=== PATIENT | female | born 1940 | race Caucasian/White ===

== ENCOUNTER 2019-10-16 16:41 | Emergency (ER) | payer MEDICARE, OTHER ==
[~2019-10-16] VITALS: Ht 157.5 cm; Wt 66.2 kg
[2019-10-16 16:46] VITALS: BP 183/59; Ht 157.5 cm; Wt 66.2 kg
== END 2019-10-16 18:06 | disposition home or self-care (01) ==
LOC: ED 16:41
DX: S83.92XA Sprain of unspecified site of left knee, initial encounter (principal); L97.429 Non-pressure chronic ulcer of left heel and midfoot with unspecified severity; L97.419 Non-pressure chronic ulcer of right heel and midfoot with unspecified severity; E11.621 Type 2 diabetes mellitus with foot ulcer; I10 Essential (primary) hypertension; F03.90 Unspecified dementia, unspecified severity, without behavioral disturbance, psychotic disturbance, mood disturbance, and anxiety; W18.39XA Other fall on same level, initial encounter; Y93.89 Activity, other specified; Y92.89 Other specified places as the place of occurrence of the external cause; Y99.8 Other external cause status
CPT/HCPCS: Q0092

== ENCOUNTER 2019-11-04 18:04 | Inpatient (IN) | payer OTHER, MEDICARE ==
[~2019-11-04] VITALS: Ht 152.4 cm; Wt 45.4 kg
[2019-11-04 18:22] VITALS: Ht 152.4 cm; Wt 45.4 kg
--- NOTE | 2019-11-04 18:46 | NUR ---
MSE BY DR WESTFALL.
--- NOTE | 2019-11-04 18:53 | NUR ---
PT UNDRESSED WITH TOTAL ASSIST, PT GRABS WHEN ASSISTED TO TURN EITHER SIDE
[2019-11-04 19:09] LABS: BASOPHIL % 0.1 % (0-2); PLATELET COUNT 346 x10^3mcL (130-400); RED CELL DISTRIBUTION WIDTH 14.1 % (11.5-14.5)
[2019-11-04 19:24] LABS: CALCIUM 8.6 mg/dL (8.5-10.1); CARBON DIOXIDE 28.7 mmol/L (21-32); CHLORIDE SERUM 99 mmol/L (98-107); CREATININE SERUM 0.8 mg/dL (0.6-1.0); GLUCOSE SERUM 211 mg/dL (74-106); POTASSIUM SERUM 4.2 mmol/L (3.5-5.1); SODIUM SERUM 136 mmol/L (136-145)
[2019-11-04 19:33] LABS: ALKALINE PHOSPHATASE 64 U/L (46-116); ALT/SGPT 23 U/L (14-59); AST/SGOT 13 U/L (15-37); BILIRUBIN TOTAL 0.2 mg/dL (0.20-1.00); MAGNESIUM 1.8 mg/dL (1.8-2.4); TOTAL PROTEIN, SERUM 7.8 g/dL (6.4-8.2)
[2019-11-04 19:34] LABS: ALBUMIN 2.9 g/dL (3.4-5.0)
--- NOTE | 2019-11-04 19:42 | NUR ---
PT WITH FAMILY AT THE BEDSIDE. FAMILY STATED PT IS NOT IN PAIN AT THIS TIME AND IS REFUSING TORDOL AT THIS TIME. PT RESTING WELL WITH NO FACIAL GRIMACE OR S/S OF PAIN AT THIS TIME WILL CONTINUE TO MONITOR PT
--- NOTE | 2019-11-04 21:44 | NUR ---
SPOKE WITH PT FAMILY REGARDING ADMISSION. EXPLAINED DX AND ADMISSION TO PT DAUGHTER. PT REMAIN TO HAVE ELEVATED B/P MD AWARE PT MEDICATED WILL CONTINUE TO MONITOR
[2019-11-05] VITALS (8 sets, daily range): BP systolic 144–184; BP diastolic 47–77
--- NOTE | 2019-11-05 00:10 | NUR ---
PT TAKEN TO CT SCAN OF HIP PER ORDER
--- NOTE | 2019-11-05 00:42 | NUR ---
REPORT GIVEN TO EMMANUEL PAGE PT TAKEN TO FLOOR IN STABLE CONDITON NO CHANGE AT THIS TIME
[2019-11-05 00:48] LABS: CHOLESTEROL/HDL RATIO 3.8
[2019-11-05] MEDS ORDERED: GLUCOPHAGE500 MG PO (00:50)
[2019-11-05] MEDS ORDERED: KAPVAY0.1 MG PO (00:51)
[2019-11-05 02:02] LABS: FREE T4 1.13 ng/dL (0.76-1.46); FREE THYROXINE INDEX 3.5 ug/dL (1.4-4.5); T4(THYROXINE) 9.7 ug/dL (4.7-13.3)
[2019-11-05 02:48] LABS: T3 TOTAL 0.98 ng/mL
--- NOTE | 2019-11-05 06:10 | NUR ---
MAGALLANES CATHETER INSERTED, 300 CC OUT.
[2019-11-05 06:31] LABS: BASOPHIL % 0.5 % (0-2); PLATELET COUNT 325 x10^3mcL (130-400); RED CELL DISTRIBUTION WIDTH 14.1 % (11.5-14.5)
[2019-11-05 06:39] LABS: CALCIUM 8.3 mg/dL (8.5-10.1); CARBON DIOXIDE 28.8 mmol/L (21-32); CHLORIDE SERUM 102 mmol/L (98-107); GLUCOSE SERUM 166 mg/dL (74-106); POTASSIUM SERUM 4.1 mmol/L (3.5-5.1); SODIUM SERUM 137 mmol/L (136-145)
--- NOTE | 2019-11-05 06:51 | NUR ---
COMFORT AND SAFETY MEASURES MAINTAINED. WILL CONTINUE TO MONITOR AND ENDORSE CARE TO DAY SHIFT NURSE.
--- NOTE | 2019-11-05 07:30 | NUR ---
RECEIVED PATIENT. IN BED SLEEPING, EASILY AROUSABLE. NO ACUTE RESP DISTRESS NOTED. NO COMPLAINTS OF PAIN AT THIS TIME. IV INTACT AND PATENT. NO ERYTHEMA/SWELLING NOTED. SAFETY PRECAUTION IN PLACE. CALL LIGHT WITHIN REACH. WILL CONTINUE TO MONITOR.
--- NOTE | 2019-11-05 07:47 | NUR ---
Cancellation requested for Echocardiogram.
--- NOTE | 2019-11-05 09:14 | NUR ---
PAGER SENT TO DR. HAINES REGARDING PATIENT LABS HGB 9.4, HCT 28 UA +1 PROTEIN, 2+ BLOOD, TRACE LEUK ESTERASE, BUN 19/0. NO NEW ORDERS AT THIS TIME. WILL CONTINUE TO MONITOR.
--- NOTE | 2019-11-05 09:30 | NUR ---
PATIENT IN BED, STABLE. NO ACUTE RESP DISTRESS NOTED. NO NOTED SIGNS OF PAIN. CHG WIPES PERFORMED PRIOR TO SURGERY. REPORT GIVEN TO PACU NURSE. IV INTACT AND PATENT. NO ERYTHEMA/SWELLING NOTED. SAFETY PRECAUTION IN PLACE. ASSISTED CNC MAINTENANCE MECHANIC WITH PERINEAL CARE. PATIENT HAD BM X1, SOFT STOOL. MAGALLANES CATH IN PLACE, DRAINING WITHOUT DIFFICULTY. CALL LIGHT WIHTIN REACH. WILL CONTINUE TO MONITOR.
[2019-11-05 10:19] LABS: UA SPECIFIC GRAVITY 1.015 (1.005-1.035); microscopic required? YES; urine erythrocyte 2+ (NEGATIVE)
--- NOTE | 2019-11-05 12:05 | NUR ---
ASSISTED HOTEL FRONT DESK AGENT WITH PERINEAL CARE DUE TO PATIENT BM X1. PATIENT STABLE. NO ADISTRESS NOTED. PATIENT TAKEN DOWN TO OR VIA BED ACCOMPLANIED BY MEDICAL TRANSPORT AT 1213PM 11/05/2019. WILL WAIT FOR ARRIVAL BACK TO UNIT.
--- NOTE | 2019-11-05 12:20 | NUR ---
SPOKE WITH BAUDILIO PAGE, REGARDING NEED FOR SIGNED CONSENT PRIOR TO SURGERY AND DAUGHTER IS WAITING IN THE LOBBY FOR PAPERWORK. PER BAUDILIO PAGE, HE WILL CONTACT THE LOBBY AND WILL HAVE THE CONSENT SIGNED BY DAUGHTER.
--- NOTE | 2019-11-05 15:01 | NUR ---
RECEIVED PATIENT FROM PACU ACCOMPANIED BY CAMILO KUNZ. NO ACUTE RESP DISTRESS NOTED. NO C/O PAIN. PATIENT ALERT AND AWAKE. NO NOTED SIGNS OF PAIN. INCISION SITE, C/D/I. NO HEAVY BLEEDING NOTED. VITAL SIGNS STABLE. SAFETY PRECAUTION IN PLACE. CALL LIGHT WITHIN REACH. WILL CONTINUE TO MONITOR.
--- NOTE | 2019-11-05 16:52 | NUR ---
PATIENT IN BED, STABLE. NO ACUTE RESP DISTRESS NOTED. REMAINS ON ROOM AIR. NO NOTED SIGNS OF PAIN. IV INTACT AND PATENT. NO ERYTHEMA/SWELLING NOTED. INCISION SITE TO RIGHT HIP, C/D/I. NO BLEEDING NOTED. BILATERAL HEELS ELEVATED. SAFETY PRECAUTION IN PLACE. CALL LIGHT WITHIN REACH. WILL CONTINUE TO MONITOR.
--- NOTE | 2019-11-05 18:20 | NUR ---
PATIENT BP 161/77, MAY BE DUE TO PAIN. PER DAUGHTER, BLOOD PRESSURE IS NORMAL FOR PATIENT BUT OK TO GIVE TYLENOL. TYLENOL 650 MG PO GIVEN. PATIENT STABLE. NO ACUTE RESP DISTRESS NOTED. IV INTACT AND PATENT. SAFETY PRECAUTION IN PLACE. CALL LIGHT WITHIN REACH. WILL ENDORSE CARE TO RADIOLOGICAL METALLURGIST NURSE. DRESSING TO RIGHT HIP, C/D/I. NO BLEEDING NOTED. ALL NEEDS MET. PATIENT 30 DEGREES HOB ELEVATED.
--- NOTE | 2019-11-05 19:30 | NUR ---
RECEIVED PT IN BED AWAKE, ALERT, CONFUSED. SHE IS NON-VERBAL. NO SOB NOTED ON ROOM AIR. BOWEL SOUNDS ACTIVE. PT IS S/P RT HIP CLOSED REDUCTION PERCUTANEUS PINNING TODAY. SX SITE TO RT HIP W/ SUTURES AND COVERED W/ DERMABOND. NO BLEEDING NOTED. PT APPEARS CALM AND W/ NO C/O PAIN AT THIS TIME. W/ IVF 1/2 NS W/ 20 KCL AT 50 CC/HR VIA RT UPPER ARM. CALL LIGHT W/IN REACH.
--- NOTE | 2019-11-05 21:36 | NUR ---
PT MEDICATED W/ NORCO 7.5/325 MG PO FOR PAIN TO RT HIP 02/17O.
--- NOTE | 2019-11-05 23:03 | NUR ---
PT SCREAMING IF IN PAIN. MEDICATED PT W/ MORPHINE 2 MG IV FOR PAIN TO RT HIP. PT REPOSITIONED MORE COMFORTABLY.
--- NOTE | 2019-11-06 05:39 | NUR ---
PT SLEPT FAIRLY. SHE WAS MEDICATED FOR PAIN X2. SX SITE APPEARS CLEAN AND NO BLEEDING NOTED. MAGALLANES CATH INTACT AND DRAINING WELL. MAGALLANES CATH CARE DONE PER PROTOCOL. IVF 1/5 NS W/ 20 KCL INFUSING AT 50 CC/HR VIA RT UPPER ARM. ALL NEEDS ATTENDED TO.
[2019-11-06 05:40] VITALS: BP 143/41
[2019-11-06 06:31] LABS: CALCIUM 8.3 mg/dL (8.5-10.1); CHLORIDE SERUM 105 mmol/L (98-107); CREATININE SERUM 0.7 mg/dL (0.6-1.0); GLUCOSE SERUM 127 mg/dL (74-106); MAGNESIUM 1.8 mg/dL (1.8-2.4); PHOSPHOROUS 4.5 mg/dL (2.5-4.9); POTASSIUM SERUM 4.7 mmol/L (3.5-5.1); SODIUM SERUM 140 mmol/L (136-145)
[2019-11-06 06:36] LABS: BASOPHIL % 0.2 % (0-2); PLATELET COUNT 324 x10^3mcL (130-400); RED CELL DISTRIBUTION WIDTH 13.9 % (11.5-14.5)
--- NOTE | 2019-11-06 07:25 | NUR ---
RECEIVED PT FROM NIGHT RN. PT AWAKE AND ALERT. NONVERBAL. RES E/U, LUNG SOUNDS CLR ON ROOM AIR. NO SOB NOTED. MED SURGE PATIENT. DENIES CHEST PAIN/PRESSURE. PERIPHERAL PULSES PALPABLE W TRACE EDEMA NOTED ON RLE. SCD IN PLACE ON LLE. ABD SOFRT WITH ACTIVE BOWEL SOUNDS. MAGALLANES DRAINING TO GRAVITY W YELLOW URINE NOTED. IV TO R UPPER ARM INFUSING 1/2 NS W 20 KCL W NO REDNESS NOTED, CDI AND PATENT.
[2019-11-06 08:49] VITALS: BP 142/46
--- NOTE | 2019-11-06 10:56 | NUR ---
PT SITTING ON CHAIR. NO SIGNS OF ACUTE DISTRESS NOTED. IV SITE TO R UPPER ARM INFUSING 1/2 NS W 20 KCL W NO SIGNS OF INFILTRATION NOTED.
--- NOTE | 2019-11-06 12:03 | NUR ---
PT WAS SCREAMING WHEN PHYSICAL THERAPY WAS TRANSFERRING PT FROM CHAIR TO BED. GIVEN IV MORPHINE FOR PAIN PER EMAR.
[2019-11-06 13:16] VITALS: BP 161/46
--- NOTE | 2019-11-06 14:35 | NUR ---
PHYSICAL THERAPY DAILY NOTES CO-SIGN All documentation done by the Anchor Tacker for 11/06/19 has been reviewed. I agree with the documentation. Reviewed/Co-Signed by: Zina Lam PT Documentation Done by:MELISSA SIN SPT
[2019-11-06 18:05] VITALS: BP 183/51
--- NOTE | 2019-11-06 18:52 | NUR ---
NO SIGNIFICANT CHANGES NOTED. AWAKE AND ALERT. RES E/U, NO SOB NOTED. NO ACUTE DISTRESS NOTED. WILL ENDORSE CARE TO NEXT SHIFT.
--- NOTE | 2019-11-06 19:30 | NUR ---
RECEIVED PT IN BED AWAKE, ALERT . PT IS NON-VERBAL. LUNG SOUNDS CLEAR. NO SOB ON ROOM AIR. PT APPEARS CALM AND DOES NOT APPEAR TO BE IN PAIN AT THIS TIME. SX SITE TO RT HIP APPEARS CLEAN AND DRY. W/ IV TO RT UPPER ARM CDI. MAGALLANES CATH INTACT AND PATENT. CALL LIGHT W/IN REACH. WILL CONTINUE W/ CARE.
[2019-11-06 20:35] VITALS: BP 178/60
[2019-11-06 22:12] VITALS: BP 151/45
--- NOTE | 2019-11-06 23:20 | NUR ---
PT MOANING IF IN PAIN. MORPHINE 2 MG IV GIVEN.
[2019-11-07 05:00] VITALS: BP 158/45
--- NOTE | 2019-11-07 05:09 | NUR ---
PT SLEPT IN LONG INTERVALS. SHE WAS MEDICATED FOR PAIN X1. NO NEURO CHANGES. NO RESP. DISTRESS. PT ABLE TO TAKE PO MEDS CRUSHED W/ A LITTLE WATER. MAGALLANES CATH IN PLACE AND PATENT. MAGALLANES CATH CARE DONE. NO BM NOTED THIS SHIFT. ALL NEEDS ATTENDED TO.
[2019-11-07 06:36] LABS: BASOPHIL % 0.5 % (0-2); PLATELET COUNT 350 x10^3mcL (130-400); RED CELL DISTRIBUTION WIDTH 14.3 % (11.5-14.5)
[2019-11-07 06:57] LABS: CALCIUM 8.7 mg/dL (8.5-10.1); CARBON DIOXIDE 26.7 mmol/L (21-32); CHLORIDE SERUM 104 mmol/L (98-107); CREATININE SERUM 0.8 mg/dL (0.6-1.0); GLUCOSE SERUM 134 mg/dL (74-106); POTASSIUM SERUM 4.4 mmol/L (3.5-5.1); SODIUM SERUM 141 mmol/L (136-145)
--- NOTE | 2019-11-07 08:02 | NUR ---
RECEIVED PATIENT FROM CAMILO LAU. PATIENT IN BED AT THIS TIME AWAKE, DOES NOT RESPOND TO QUESTIONS, UNABLE TO ANSWER QUESTIONS. NO S/S OF DISCOMFORT OR PAIN AT THIS TIME. R HIP INCISION IS TREMAYNE, CLEAN AND DRY. WILL WAIT FOR MEDICAL TEAM AND DR LUI TO COME SEE PATIENT, AND CONTINUE TO MONITOR AND REORIENT PATIENT TO SITUATION. PATIENT NEAR NURSES STATION.
[2019-11-07] MEDS ORDERED: ASP325 PO (09:54)
[2019-11-07] MEDS ORDERED: D-10001 TAB PO (10:00)
[2019-11-07] MEDS ORDERED: KEFLEX500 M1 PO (10:01)
--- NOTE | 2019-11-07 11:23 | NUR ---
PATIENT BP RECHECKED POST AM PO MEDICATIONS AND BP IS ELEVATED TO 195/70 (116 MAP). PATIENT SEATED IN CHAIR AT THIS TIME. PRN MORPHINE IV ADMINISTERED FOR PAIN CONTROL. LAUNDRY AID MICHELLE NOTIFIED AND MADE AWARE OF BP ELEVATION AND THAT PATIENT HAD TROUBLE WITH PO CATAPRES 0.1 MG THIS AM. WILL CONTINUE TO MONITOR. PT TOÑA ABLE TO ASSIST PATIENT BACK INTO BED AT THIS TIME.
[2019-11-07 14:12] VITALS: BP 158/45
[2019-11-07 14:23] VITALS: BP 176/58
--- NOTE | 2019-11-07 15:25 | NUR ---
PHYSICAL THERAPY DAILY NOTES CO-SIGN All documentation done by the Type Disk Quality Control Supervisor for 11/07/19 has been reviewed. I agree with the documentation. Reviewed/Co-Signed by: Zina Lam PT Documentation Done by:MELISSA SIN SPT
--- NOTE | 2019-11-07 16:23 | NUR ---
PATIENT DAUGHTER CONTACTED TO COME AND INCLUSION INTERN PATIENT. PATIENT MAGALLANES CATHETER REMOVED AND INTACT, IV CATHETER REMOVED AND INTACT. PATIENT DISCHARGE PACKET COMPILED. PATIENT TRANSFERRED TO OWN WHEELCHAIR AND WHEELED DOWN TO LOBBY. PATIENT WHEELED INTO FAMILY VAN. DISCHARGE INSTRUCTIONS GIVEN AND EXPLAINED TO PATIENT GRANDDAUGHTER, ALL QUESTIONS ADDRESSED AT THIS TIME. FAMILY AWARE TO TAKE PO MEDICATIONS PRESCRIBED AND TO FU WITH PCP AND DR SAYED THE ORTHOPEDIC SURGEON. QUESTIONS ADDRESSED ABOUT WEIGHT BEARING, HH/PT, Q2H TURNS, INCISION CHANGES AND NUTRITION. SIGNATURES OBTAINED, PACKET GIVEN TO FAMILY.
== END 2019-11-07 16:15 | disposition home health service (06) | DRG 308 ==
LOC: ED 18:04 → MU 11-05 00:07
PROVIDERS: Emergency Medicine; Orthopaedic Surgery; ADMIT Internal Medicine
PROC: 0QS634Z Reposition Right Upper Femur with Internal Fixation Device, Percutaneous Approach (ICD-10-PCS; principal; 2019-11-05 12:00)
DX: S72.011A Unspecified intracapsular fracture of right femur, initial encounter for closed fracture (principal); E11.65 Type 2 diabetes mellitus with hyperglycemia; F03.90 Unspecified dementia, unspecified severity, without behavioral disturbance, psychotic disturbance, mood disturbance, and anxiety; I16.0 Hypertensive urgency; W18.39XA Other fall on same level, initial encounter; Z91.81 History of falling; Y93.89 Activity, other specified; Y92.018 Other place in single-family (private) house as the place of occurrence of the external cause; Z68.1 Body mass index [BMI] 19.9 or less, adult; Z79.84 Long term (current) use of oral hypoglycemic drugs
CPT/HCPCS: 83880; 84439; 87804; 97530-GP; G0378; J0690; J1885; J2270; J3010; J3490; J7030; Q0092